=== PATIENT | female | born 1985 | race Caucasian/White ===

== ENCOUNTER 2016-06-04 12:34 | Emergency (ER) | payer BC ==
[~2016-06-04] VITALS: Ht 154.9 cm; Wt 90.7 kg
[2016-06-04 13:08] VITALS: BP 127/61
[2016-06-04 13:35] LABS: OBC FLU VALID
--- NOTE | 2016-06-04 13:54 | RAD ---
PA and lateral chest. History: Cough and fever PA and lateral views were taken of the chest. Lungs are clear. Heart is normal in size. There is no pleural effusion. Impression: 1. No acute chest disease.
[2016-06-04] MEDS ORDERED: PROAIR HFA8.5 GM INH (13:58)
[2016-06-04] MEDS ORDERED: HYDR115S2 PO (13:58)
[2016-06-04] MEDS ORDERED: OSEL75CA PO (13:58)
--- NOTE | 2016-06-04 13:58 | PHYS DOC ---
Past Medical History Past Medical History: Pneumonia Past Surgical History: Other Additional Past Surgical Histo: ADNOIDS, CYST REMOVAL Alcohol Use: Rarely Drug Use: None Adult General Chief Complaint Chief Complaint: FEVER HPI HPI Patient is a 30 year old female who comes in today with complaint of nonproductive cough, fevers and body aches that began yesterday. Patient denies any history of cardiopulmonary disease. Patient is not been around anybody that she knows of with influenza. Patient denies antibiotic use, hospitalization or foreign travel within the past 90 days. Patient states that she stopped her menstrual cycle yesterday. Review of Systems Review of Systems Constitutional: Denies fever or chills [] Eyes: Denies change in visual acuity, redness, or eye pain [] HENT: Denies nasal congestion or sore throat [] Respiratory: Denies cough or shortness of breath [] Cardiovascular: No additional information not addressed in HPI [] GI: Denies abdominal pain, nausea, vomiting, bloody stools or diarrhea [] : Denies dysuria or hematuria [] Musculoskeletal: Denies back pain or joint pain [] Integument: Denies rash or skin lesions [] Neurologic: Denies headache, focal weakness or sensory changes [] Endocrine: Denies polyuria or polydipsia [] Allergies Allergies Allergies Coded Allergies Type Severity Reaction Last Updated Verified No Known Drug Allergies 06/04/16 No Physical Exam Physical Exam Constitutional: Well developed, well nourished, no acute distress, non-toxic appearance. [] HENT: Normocephalic, atraumatic, bilateral external ears normal, oropharynx moist, no oral exudates, nose normal. Eyes: PERRLA, EOMI, conjunctiva normal, no discharge. [] Neck: Normal range of motion, no tenderness, supple, no stridor. There is no meningismus. There is bilateral anterior and posterior cervical lymphadenopathy. Cardiovascular:Heart rate 116 with regular rhythm, no murmur Lungs & Thorax: There is no evidence respiratory distress respiratory fatigue. Patient's lung sounds are clear to auscultation bilaterally. Abdomen: Bowel sounds normal, soft, no tenderness, no masses, no pulsatile masses. [] Skin: Warm, dry, no erythema, no rash. [] Back: No tenderness, no CVA tenderness. [] Extremities: No tenderness, no cyanosis, no clubbing, ROM intact, no edema. [] Neurologic: Alert and oriented X 3, normal motor function, normal sensory function, no focal deficits noted. [] Psychologic: Affect normal, judgement normal, mood normal. [] Current Patient Data Vital Signs Vital Signs Date Time Temp Pulse Resp B/P Pulse Ox O2 Delivery O2 Flow Rate FiO2 06/04/16 13:08 100.0 121 20 100 Room Air 100.0 Lab Values Laboratory Tests Test 06/04/16 13:10 Influenza Type A Antigen Negative (NEGATIVE) Influenza Type B Antigen Negative (NEGATIVE) EKG EKG [] Radiology/Procedures Radiology/Procedures PA and lateral chest x-ray was performed with adequate technique. There is no evidence of infiltrate or consolidation. Course & Med Decision Making Course & Med Decision Making Pertinent Labs and Imaging studies reviewed. (See chart for details) [] Dragon Disclaimer Dragon Disclaimer This electronic medical record was generated, in whole or in part, using a voice recognition dictation system. Departure Departure Impression: Primary Impression: Influenza Condition: GOOD Referrals: IFRAH ESPINOSA (PCP) Patient Instructions: Fever, Adult, [id number], Influenza, Adult, Easy-to- Read Additional Instructions: 1. Take the medication as prescribed. 2. Acetaminophen every 4-6 hours or ibuprofen every 8 hours for body temperature 100.5 degrees or higher. 3. As discussed, please follow-up with your primary care doctor this coming week for reevaluation. Scripts Hydrocodone/Chlorphen Polis (Tussionex Pennkinetic Susp)480 Ml Fide.er.12h5 Ml PO BID #100 ML Prov:STAR RODNEY 06/04/16 Oseltamivir Phosphate (Tamiflu)75 Mg Capsule1 Cap PO BID #10 CAP Prov:STAR RODNEY 06/04/16 Albuterol Sulfate (Proair Hfa Inhaler)8.5 Gm Hfa.aer.ad1 Puff INH PRN Q6HRS PRN shortness of breath and cough #1 INHALER Ref 0 Prov:STAR RODNEY 06/04/16 STAR RODNEY Jun 04, 2016 13:58
== END 2016-06-04 14:09 | disposition home or self-care (01) ==
LOC: ER 12:34
DX: J11.1 Influenza due to unidentified influenza virus with other respiratory manifestations (principal); Z87.01 Personal history of pneumonia (recurrent)
CPT/HCPCS: 71020; 87804; 99285-25